=== PATIENT | female | born 1970 | race Caucasian/White ===

== ENCOUNTER 2017-02-19 00:19 | Emergency (ER) | payer SELFPAY ==
[2017-02-19] MEDS ORDERED: TYLENOL 325 MG PO ONE (00:44)
[2017-02-19] MEDS ORDERED: TYLENOL 325 MG ONE (00:47)
--- NOTE | 2017-02-19 00:51 | ERPHSYRPT ---
- History of Present Illness Time Seen by Provider: 02/19/17 00:35 Source: patient Exam Limitations: no limitations Patient Subjective Stated Complaint: pt states she fell down stairs and hit her lt rib area and her tailbone Triage Nursing Assessment: pt alert and oriented, answers questions approp. pt ambulatory with steady gait noted. respirations nonlaboredw tih lungs cta. rug burn noted to lt ribs and under lt breast. pt c/o pain at coccyx also, no bruising noted at this time. Physician History: ABOUT 4 HOURS AGO AT HOME PT SLIPPED AND FELL DOWN 10 CARPETED STEPS AT HOME WITH RESULTANT LEFT RIB PAIN AND COCCYX PAIN. DENIES VOMITING, LOC, SEIZURE. Allergies/Adverse Reactions: Penicillins Allergy (Verified 02/19/17 00:39) Hives tramadol [From Ultram] Allergy (Verified 02/19/17 00:39) Swelling of Face Home Medications: Aspirin 81 gm Chew [Baby Aspirin 81 mg Chew] 81 mg PO DAILY 02/19/17 [ History] Carvedilol 3.125 mg [Coreg 3.125 MG] 3.125 mg PO BID 02/19/17 [History] Hx Tetanus, Diphtheria Vaccination/Date Given: Yes Hx Influenza Vaccination/Date Given: Yes Hx Pneumococcal Vaccination/Date Given: No Immunizations Up to Date: Yes - Review of Systems Cardiac: Chest Pain (LEFT LATERAL RIB PAIN) Abdominal/Gastrointestinal: No Vomiting Musculoskeletal: Other (COCCYX PAIN) Neurological: No Seizure All Other Systems: Reviewed and Negative - Past Medical History Pertinent Past Medical History: Yes Cardiac History: Arrhythmia Other Medical History: a fib - Past Surgical History Past Surgical History: Yes Cardiac: Cardiac Catheterization Musculoskeletal: Orthopedic Surgery Female Surgical History: Hysterectomy Other Surgical History: rt achilles tendon repai, breast implants - Social History Smoking Status: Never smoker Exposure to second hand smoke: No Drug Use: none Patient Lives Alone: No - Female History Hx Last Menstrual Period: hyster - Nursing Vital Signs Nursing Vital Signs: Initial Vital Signs Temperature 98.0 F Temperature Source Oral Pulse Rate 86 Respiratory Rate 16 Blood Pressure [Right Arm] 133/111 Pain Intensity 6 - [place] Coma Score Best Eye Response (Jean): (4) open spontaneously Best Verbal Response (Jean): (5) oriented Best Motor Response (To[place]ito): (6) obeys commands [place] Total: 15 - Physical Exam General Appearance: alert Head Injury: no evidence of injury Eye Exam: PERRL/EOMI ENT Exam: airway nml, hearing grossly normal Neck Exam: trachea midline, full range of motion, No tenderness Respiratory/Chest Exam: chest tenderness (MILD TENDERNESS OVER AN ABRASION ON THE LEFT LATERAL 6-8TH RIBS), normal breath sounds Cardiovascular Exam: normal heart sounds Gastrointestinal Exam: soft, normal bowel sounds Back Exam: other (MILD TENDERNESS OVER THE SACRUM WITHOUT BRUISING OR ERYTHEMA.) Extremity Exam: normal range of motion, No swelling Peripheral Pulses: dorsalis-pedis (R): 3+, dorsalis-pedis (L): 3+ Neurologic Exam: alert, cooperative, sensation nml, No motor deficits Skin Exam: warm, dry SpO2 Interpretation: normal SpO2: 100 Oxygen Delivery: Room Air - Course Nursing assessment & vital signs reviewed: Yes - Radiology Exams Pelvis X-ray Interpretation: Interpreted by me, No Fracture Left Ribs X-ray Interpretation: Interpreted by me, No Fracture Ordered Tests: Active Orders 24 hr Category Date Time Status PELVIS (1 OR 2 VIEWS) Stat Exams 02/19/17 00:43 Ordered RIBS UNILATERAL Stat Exams 02/19/17 00:42 Ordered Medication Summary Discontinued Medications Generic Name Dose Route Start Last Admin Trade Name Freq PRN Reason Stop Dose Admin Acetaminophen 975 mg 02/19/17 00:44 02/19/17 00:48 Tylenol 325 Mg PO 02/19/17 00:45 975 mg STAT ONE Administration Acetaminophen Confirm 02/19/17 00:47 Tylenol 325 Mg Administered 02/19/17 00:48 Dose 975 mg .ROUTE .STK-MED ONE - Departure Time of Disposition: 01:50 Departure Disposition: Home Clinical Impression: LEFT RIB CONTUSION, LOW BACK PAIN Condition: Fair Critical Care Time: No Instructions: Prevent Falls Additional Instructions: FOLLOW UP WITH PRIVATE DOCTOR TOMORROW. DO NOT LIFT, BEND OR TWIST TORSO. Prescriptions: Naproxen [Naprosyn] 500 mg PO [id number] PRN #20 tablet PRN Reason: Pain
[2017-02-19] MEDS ORDERED: NORCO 5/325 MG PO ONE (01:50)
[2017-02-19] MEDS ORDERED: NORCO 5/325 MG ONE (01:54)
[2017-02-19 02:04] VITALS: BP 130/78; PULSE 76; O2SAT 99
--- NOTE | 2017-02-19 09:17 | XRAY ---
Indication: Pain following fall down stairs. Comparison: None 2 views of the left ribs demonstrates overlying breast implant. No other bony, articular, or soft tissue abnormalities.
--- NOTE | 2017-02-19 09:17 | XRAY ---
Indication: Pain following fall down stairs. Comparison: None Single AP pelvis demonstrates normal bones, articulation, and soft tissues.
== END 2017-02-19 02:04 | disposition home or self-care (01) ==
LOC: ED 00:19
DX: S20.212A Contusion of left front wall of thorax, initial encounter (principal); M54.5 Low back pain; S30.0XXA Contusion of lower back and pelvis, initial encounter; W10.9XXA Fall (on) (from) unspecified stairs and steps, initial encounter
CPT/HCPCS: 71100; 72170; 99283; A9270-GY